=== PATIENT | male | born 1975 | race Two or more races ===

== ENCOUNTER → 2022-02-10 09:42 | Outpatient (BNVA) | payer MEDICAID, SELFPAY | PROVIDERS: PCP Internal Medicine Geriatric Medicine; Referring Provider Internal Medicine Geriatric Medicine; Visit Provider Internal Medicine Cardiovascular Disease | DX: R07.89 Other chest pain (principal); R00.2 Palpitations | CPT/HCPCS: 99202 ==

== ENCOUNTER → 2022-03-01 12:44 | Outpatient (REF) | payer MEDICAID, SELFPAY ==
--- NOTE | 2022-03-01 13:13 | HM_ITS ---
Patient is a 47-year-old male. REASON THE TEST: Palpitations. INTERPRETATION: The patient was monitored from 03/01/2022, to 03/31/2022, for a total period of 30 days. Baseline rhythm is normal sinus rhythm. Heart rate ranges from 61 beats to 95 beats per minute. There was no significant tachycardia or bradycardia noted. There were rare isolated PVCs noted. The patient triggered 21 episodes but no symptoms reported. Very few of these correlated with isolated PVCs. CONCLUSION: Event monitor is remarkable for: 1. Baseline normal sinus rhythm with no pauses. 2. Rare isolated PVCs noted. 3. The patient did not report any symptoms. Daniel Ham MD NRS/MODL / [id number]
== END ==
LOC: HO.CARD 12:44
PROVIDERS: PCP Internal Medicine Geriatric Medicine; Visit Provider Internal Medicine Cardiovascular Disease
DX: R00.2 Palpitations (principal)
CPT/HCPCS: 93270

== ENCOUNTER → 2022-03-31 07:24 | Outpatient (REF) | payer MEDICAID, SELFPAY ==
--- NOTE | 2022-03-31 07:30 | CA_ITS ---
Acquisition Time: 2022-03-31 08:36:03 Total Exercise Time: 00:07:52 Test Indications: Chest Pain Medications: LOSARTAN ASA Protocol: SABINA Max HR: 166 BPM 97% of Pred: 171 BPM Max BP: 172/094 mmHG Max Work Load: 9.8 METS Exercise stress test with exercise 7 min 42 sec of Sabina protocol, with mild sob, no chest discomfort, with isolated PAC, with normotensive response to exercise, without EKG changes meeting criteria for ischemia. Test reviewed with Dr Ham Referred By: Daniel Ham Overread By: VERONIQUE WYNN
--- NOTE | 2022-03-31 07:30 | CA_ITS ---
Transthoracic Echocardiogram Patient (Last, First, Middle): Trav Medeiros, Gender: Male Date of : 1975 Age: 47 Procedure Date: 03/31/2022 Procedure Type: Transthoracic Echocardiogram Location: OP Height: 162.56 cm Weight: 69.85 kg BSA: 1.75 m2 Heart Rate: bpm BP: 126 / 70 mmHg Audio/Visual Operator: NIKOLAS Referring MD: Daniel Ham MD Rpg Programmer: Daniel Ham MD Symptoms: R00.2 - Palpitations Study Quality: Fair ECG Rhythm: Sinus Conclusions: - Normal study Findings Left Ventricle Normal left ventricular size, thickness, and systolic function. The visually estimated ejection fraction is between 60-65%. Diastolic function is normal for age. Right Ventricle Normal right ventricular cavity size and systolic function. Atria Both atria are normal in size. There is lipomatous hypertrophy of the interatrial septum. There is no evidence of interatrial shunt. Aortic Valve The aortic valve structure and function is likely normal. There is no aortic valve stenosis. There is no aortic valve regurgitation. Mitral Valve Normal mitral valve structure and function. There is no mitral valve regurgitation. There is no mitral valve stenosis. Pulmonic Valve The pulmonic valve is likely normal. There is no pulmonic valve regurgitation. Tricuspid Valve Normal tricuspid valve structure. There is trace tricuspid valve regurgitation. The right ventricular systolic pressure is normal. The right ventricular systolic pressure is 18 mmHg. Normal right atrial pressure. There is no evidence of pulmonary hypertension. Great Vessels All visible segments of the aorta are normal in size. The pulmonary artery was not well visualized. Venous The inferior vena cava is normal in size and collapses greater than 50% with inspiration. Pericardium/Pleural There is no evidence of pericardial effusion. Prior Study Comparison No prior study available for comparison. Measurements 2D Linear Measurements IVSd: 1.09 0.6-0.9/0.6-1.0 cm LVIDd: 3.76 3.9-5.3/4.2-5.9 cm LVIDd Index: 2.15 2.4-3.2/2.2-3.1 cm/m2 LVIDs: 2.34 2.0-3.6 cm LVPWd: 1.02 0.7-1.1 cm Ao Root: 3.00 2.1-3.5 cm LA Diam: 3.40 2.7-3.8/3.0-4.0 cm LAIDs Index: 1.94 1.5-2.3 cm/m2 LV Mass: 155.07 67-162/88-224 g LV Mass Index: 88.61 43-95/49-115 g/m2 LVOT Diam: 2.20 3.0+(-)1.3 cm 2D Systolic Function EF 4C: 63.90 >55% EF 2C: 59.80 >55% EF BiP: 61.90 >55% Mitral Valve MV Pk E: 0.88 MV PK A: 0.75 MV Decel Time: 191.00 E/A: 1.20 E'Lateral: 13.90 E'Medial: 7.29 E/E' Med: 12.00 E/E' Lat: 6.30 PHT: 56.00 MVA PHT: 3.93 Decel [place]ier: 4.57 Aortic Valve AoV Pk Molina: 1.23 AoV Mn Molina: 0.79 AoV VTI: 0.26 AoV Pk Grad: 6.00 Aov Mn Grad: 3.00 RASHAD Cont.VTI: 2.35 LVOT LVOT Pk Molina: 0.85 LVOT Mn Molina: 0.52 LVOT VTI: 0.16 LVOT Pk Grad: 3.00 LVOT Mn Grad: 1.00 LVOT Diam: 2.20 LVOT Area: 3.80 Diastolic Function MV Pk E: 0.88 MV Pk A: 0.75 E/A: 1.20 E'Medial: 7.29 E/E' Med: 12.00 E' Laterial: 13.90 E/E' Lat: 6.30 Right Ventricle TAPSE (mm): 24.00 TVS' Molina: 12.00 Tricuspid Valve TR Pk Molina: 1.95 TR Pk Grad: 15.00 RA Press: 3.00 RVSP: 18.00 Great Vessels Aorta Ao Root-2D: 3.00 2.0-3.7 cm Ao Asc: 2.70 2.1-3.4 cm Pulmonary Valve PV Pk Molina: 1.12 Peak PV Grad: 5.00 Updated in Other Vendor System with Status of Final Daniel Ham MD electronically signed on 04/01/2022 8:56:46 AM with status of Final
== END ==
LOC: HO.CARD 07:24
PROVIDERS: PCP Internal Medicine Geriatric Medicine; Visit Provider Internal Medicine Cardiovascular Disease
DX: R07.89 Other chest pain (principal); I10 Essential (primary) hypertension; R00.2 Palpitations
CPT/HCPCS: 93017; 93306

== ENCOUNTER → 2022-04-20 13:59 | Outpatient (BNVA) | payer MEDICAID, SELFPAY | PROVIDERS: PCP Internal Medicine Geriatric Medicine; Referring Provider Internal Medicine Geriatric Medicine; Visit Provider Internal Medicine Cardiovascular Disease | DX: R00.2 Palpitations (principal); I10 Essential (primary) hypertension | CPT/HCPCS: 99212 ==

== ENCOUNTER 2022-06-14 10:34 | Day surgery (SDC) | payer MEDICAID, SELFPAY ==
--- NOTE | 2022-06-13 08:05 | P.CONAN_ITS ---
HPI - Anesthesia Eval Consult details Narrative: 47yo M for Upper Endoscopy and Colonoscopy [facility] Active Problems Active Problems: All Active Problems (Updated 06/08/22 @ 11:57 by Leann Gray, LEYLA) Palpitations (Acute) HTN (hypertension) (Acute) Past Medical History Medical History History of palpitations HTN (hypertension) Hx of vertigo Family History Family History Father TIA (transient ischemic attack) Mother Diabetes Surgical History Surgical History Hx of colonoscopy Hx of hernia repair Social History Social History Patient Tobacco Use Status: Former Tobacco user Use of substances other than those prescribed or required for medical reasons: No Are you DNR?: No Advance Directives: No Advance Directives Information Provided: Yes Meds Allergies Allergy/AdvReac Type Severity Reaction Status Date / Time lisinopril Allergy Mild Cough Verified 06/08/22 11:55 atenolol AdvReac Dizziness Verified 06/14/22 11:31 Home Medications Medication Instructions Recorded Confirmed Last Taken Type losartan 25 mg tablet 25 mg PO DAILY 02/10/22 06/08/22 Unknown History Exam Exam Date and Time: June 13, 2022 0805 Narrative Narrative: 30 Day Holter CONCLUSION:? Event monitor is remarkable for: 1. Baseline normal sinus rhythm with no pauses. 2. Rare isolated PVCs noted. 3. The patient did not report any symptoms. Exercise Stress 03/2022 Protocol: LINCOLN ? Max HR: 166 BPM? 97% of? Pred: 171 BPM Max BP: 172/094 mmHG Max Work Load: 9.8 METS ? Exercise stress test with exercise 7 min 42 sec of Lincoln protocol, with mild ?sob, no chest discomfort, with isolated PAC, with normotensive response to ?exercise, without EKG changes meeting criteria for ischemia. Test reviewed with Dr Ham ECHO 03/2022 Conclusions: - Normal study ? ? Assessment and Plan Assessment Anesthesia Assessment: Chart Reviewed
[2022-06-14 10:52] VITALS: BMI 26.4
--- NOTE | 2022-06-14 11:56 | HO.ANESPROP2 ---
[facility] Active Problems Active Problems: All Active Problems (Updated 06/08/22 @ 11:57 by Leann Gray, RN) Palpitations (Acute) HTN (hypertension) (Acute) Past Medical History Medical History History of palpitations HTN (hypertension) Hx of vertigo Family History Family History Father TIA (transient ischemic attack) Mother Diabetes Family history of problems with anesthesia: No Surgical History Surgical History Hx of colonoscopy Hx of hernia repair History of Problems with Anesthesia: No Social History Social History Patient Tobacco Use Status: Former Tobacco user Use of substances other than those prescribed or required for medical reasons: No Are you DNR?: No Advance Directives: No Advance Directives Information Provided: Yes Meds Allergies Allergy/AdvReac Type Severity Reaction Status Date / Time lisinopril Allergy Mild Cough Verified 06/08/22 11:55 atenolol AdvReac Dizziness Verified 06/14/22 11:31 Active Medications: Current Medications Ondansetron HCl (Ondansetron Hcl 4 Mg/2 Ml Vial) 4 mg IVPUSH ONCE PRN PRN Reason: Nausea and Vomiting Home Medications Medication Instructions Recorded Confirmed Last Taken Type losartan 25 mg tablet 25 mg PO DAILY 02/10/22 06/08/22 Unknown History Exam Exam Date and Time: June 14, 2022 1156 Height,Weight and Vital Signs: Height 5 ft 4 in Weight 69.853 kg Airway Mallampati Class: I TM Dist: >3cm Neck ROM: Full Assessment and Plan Assessment Anesthesia Assessment: Anesthesia Plan Discussed and Chart Reviewed Final Anesthetic Review Family History of Problems with Anesthesia: No History of Problems with Anesthesia: No NPO: Yes ASA Class: II Final Preanesthetic Review: No Changes in Pt Med Stat, Meds/Allgs Chart Reviewed, Consent Obtained/Reviewed and Anes Risks/Benef Reviewed Patient Risk: Low Procedure Risk: Low Anesthetic Plan Anesthetic Plan: MAC: Disposition: Standard PACU
[2022-06-14 12:58] VITALS: BP 101/61; PULSE 68; RESP 21; TEMP 37.2; O2SAT 100
--- NOTE | 2022-06-14 13:00 | PM.OP ---
Brief Operative Note Date of Service: 06/14/22 Pre-op diagnosis: GERD, Screening Post-op diagnosis: other (Reflux esophagitis, Hiatal hernia, Internal hemorrhoids) Procedure: EGD with biopsies, Colonoscopy to the cecum and TI Surgeon: José Miguel Fraga Anesthesia: MAC Was an [place] Planning Manager used for this Procedure?: No Estimated blood loss (mL): 2.0 Pathology: other (A. Esophagus 30-38cm) Condition: stable Disposition: PACU
[2022-06-14 13:12] VITALS: BP 131/88; PULSE 60; RESP 16; TEMP 37.2; O2SAT 100
--- NOTE | 2022-06-15 00:34 | OP_ITS ---
SURGEON: José Miguel Fraga MD INDICATIONS: The patient presents for evaluation of chronic gastroesophageal reflux and colorectal cancer screening. Full consent has been obtained from him for this, including risks of bleeding and perforation. PREOPERATIVE DIAGNOSIS: POSTOPERATIVE DIAGNOSIS: PROCEDURE PERFORMED: ESTIMATED BLOOD LOSS: COMPLICATIONS: ANESTHESIA: Monitored anesthesia care. ASSISTANTS: SPECIMENS: PREOPERATIVE DIAGNOSES: Chronic gastroesophageal reflux and colorectal cancer screening. POSTOPERATIVE DIAGNOSES: Chronic gastroesophageal reflux and colorectal cancer screening, reflux esophagitis, small hiatal hernia, internal hemorrhoids. DESCRIPTION OF PROCEDURE: The patient was placed in the left lateral decubitus position. The Olympus video gastroscope was passed in the posterior oropharynx and upper esophagus under direct vision. The scope was passed slowly into the distal esophagus. The gastroesophageal junction appeared at 38 cm. Extending from this to 30 cm were areas of erosions and edema. There was some friability at the EG junction itself. There was no ulceration, gross evidence of Leos esophagus, nor stricture. The scope easily into the stomach. There was a small hiatal hernia. The scope was advanced to the pylorus and the duodenum was cannulated to the descending portion. The duodenum including the bulb appeared normal without mass or ulceration. Scope was withdrawn back to the stomach. The gastric antrum and body appeared normal. Good peristalsis. The scope was retroflexed visualizing the proximal stomach carefully, which appeared normal, without any sign of mass or ulceration. The scope was straightened and withdrawn back to the esophagus. I obtained multiple biopsies between 30 cm and 38 cm. Proximal to 30 cm, the esophageal mucosa appeared normal. The scope was withdrawn from the patient. He was turned around for colonoscopy. The digital rectal exam revealed no abnormalities. The Olympus video pediatric colonoscope was entered into the rectum and advanced easily to the cecum. Once in the cecum, I did identify normal-appearing cecal pouch with appendiceal orifice and a normal-appearing ileocecal valve. The terminal ileum was cannulated and appeared normal. Scope was withdrawn back in the colon. The entire cecum and ileocecal valve appeared normal. The scope was slowly withdrawn assessing all mucosal surfaces carefully. Preparation was excellent. I did not visualize any sign of polyps, colitis, nor angiodysplasia. In the rectum, scope was retroflexed visualizing small internal hemorrhoids, but no other pathology. The rectal mucosa appeared normal. The scope was straightened and withdrawn from the patient. He tolerated both procedures well and was returned to the recovery area in stable condition. IMPRESSION: 1. Reflux esophagitis. 2. Small hiatal hernia. 3. Internal hemorrhoids. PLAN: The results of the biopsies will be checked. Given his ongoing symptoms of heartburn and today's findings, I will start him on omeprazole 20 mg daily. He should undergo repeat colonoscopy in 10 years for further screening. He should see me in the office again for followup office visit as well. He was advised not to use any aspirin and NSAIDs for 1 week. PROCEDURES PERFORMED: Esophagogastroscopy with biopsies, and colonoscopy to cecum and terminal ileum. MD JONATHAN Davis/MACK / [id number]
== END 2022-06-14 14:40 | disposition home or self-care (01) ==
PROVIDERS: PCP Internal Medicine Geriatric Medicine; Visit Provider Internal Medicine
PROC: (CPT 45378; principal; 2022-06-14 11:40)
DX: Z12.11 Encounter for screening for malignant neoplasm of colon (principal); K64.8 Other hemorrhoids; K21.9 Gastro-esophageal reflux disease without esophagitis; K20.80 Other esophagitis without bleeding; K44.9 Diaphragmatic hernia without obstruction or gangrene; I10 Essential (primary) hypertension; Z79.899 Other long term (current) drug therapy; Z87.891 Personal history of nicotine dependence
CPT/HCPCS: 45378; 43239; 88305

== ENCOUNTER → 2023-04-24 14:32 | Outpatient (BNVA) | payer MEDICAID, SELFPAY | PROVIDERS: PCP Internal Medicine Geriatric Medicine; Visit Provider Nurse Practitioner Family | DX: R00.2 Palpitations (principal); I10 Essential (primary) hypertension; Z79.899 Other long term (current) drug therapy | CPT/HCPCS: 93005; 99212 ==

== ENCOUNTER 2023-10-25 13:18 | Outpatient (REF) | payer MEDICAID, SELFPAY ==
[2023-10-25 16:31] LABS: Anion Gap 15 (12-20); Blood Urea Nitrogen 13 mg/dL (9-16); Calcium 9.4 mg/dL (8.4-10.2); Carbon Dioxide 25 mmol/L (22-29); Chloride 108 mmol/L (96-108); Cholesterol 177 mg/dL (<200); Estimated Glomerular Filt Rate > 60; Glucose Random 78 mg/dL (60-115); HDL Cholesterol 32 mg/dL (>40); LDL Cholesterol Calculated 102 mg/dL (<100); Potassium 4.1 mmol/L (3.3-5.1); Sodium 144 mmol/L (135-145); Triglycerides 215 mg/dL (<150)
[2023-10-25 16:50] LABS: Prostate Specific Antigen 0.95 ng/mL (<0.05-4.0)
== END 2023-10-25 13:19 | disposition home or self-care (01) ==
LOC: HO.HHCL 13:18
PROVIDERS: Visit Provider Internal Medicine Geriatric Medicine
DX: Z00.00 Encounter for general adult medical examination without abnormal findings (principal); Z13.220 Encounter for screening for lipoid disorders; I10 Essential (primary) hypertension; Z12.5 Encounter for screening for malignant neoplasm of prostate
CPT/HCPCS: 36415; 80048; 80061; 84153

== ENCOUNTER 2024-05-22 09:55 | Outpatient (REF) | payer MEDICAID, SELFPAY ==
[2024-05-22 11:58] LABS: Anion Gap 13 (12-20); Blood Urea Nitrogen 15 mg/dL (9-16); Calcium 9.6 mg/dL (8.4-10.2); Carbon Dioxide 26 mmol/L (22-29); Chloride 107 mmol/L (96-108); Estimated Glomerular Filt Rate > 60; Glucose Random 77 mg/dL (60-115); Potassium 3.6 mmol/L (3.3-5.1); Sodium 142 mmol/L (135-145)
== END 2024-05-22 09:56 | disposition home or self-care (01) ==
LOC: HO.HHCL 09:55
PROVIDERS: Visit Provider Internal Medicine Geriatric Medicine
DX: I10 Essential (primary) hypertension (principal)
CPT/HCPCS: 36415; 80048

== ENCOUNTER 2024-08-15 16:16 | Outpatient (REF) | payer MEDICAID, SELFPAY ==
[2024-08-17 04:04] LABS: HIV AB/AG Nonreactive (Nonreactive); HIV Num 1 0.39 S/CO (0.00-0.99); ~HepC Num1 0.22 S/CO (0.00-0.79); ~Hepatitis C Antibody Nonreactive (Nonreactive)
== END 2024-08-15 16:17 | disposition home or self-care (01) ==
LOC: HO.HHCL 16:16
PROVIDERS: Visit Provider Internal Medicine Geriatric Medicine
DX: Z11.59 Encounter for screening for other viral diseases (principal); Z11.3 Encounter for screening for infections with a predominantly sexual mode of transmission
CPT/HCPCS: 36415; 86803; 87389

== ENCOUNTER 2025-01-23 09:41 | Outpatient (REF) | payer MEDICAID, SELFPAY ==
[2025-01-23 12:11] LABS: Anion Gap 11 (12-20); Blood Urea Nitrogen 15 mg/dL (9-16); Calcium 9.1 mg/dL (8.4-10.2); Carbon Dioxide 24 mmol/L (22-29); Chloride 110 mmol/L (96-108); Estimated Glomerular Filt Rate > 60; Glucose Random 90 mg/dL (60-115); Potassium 4.1 mmol/L (3.3-5.1); Sodium 141 mmol/L (135-145)
== END 2025-01-23 09:42 | disposition home or self-care (01) ==
LOC: HO.HHCL 09:41
PROVIDERS: Visit Provider Internal Medicine Geriatric Medicine
DX: I10 Essential (primary) hypertension (principal)
CPT/HCPCS: 36415; 80048